=== PATIENT | male | born 1955 | race Caucasian/White ===

== ENCOUNTER → 2022-02-02 10:39 | Outpatient (CLI) | payer MEDICARE, OTHER, SELFPAY ==
--- NOTE | 2022-02-02 | DI.MRI.S_ITS ---
PROCEDURE: MR HIP LT WO CON INDICATIONS: Pain in left hip TECHNIQUE: Noncontrast coronal T1 spin echo and STIR through the bony pelvis. Coronal and axial T2 fast spin echo with fat saturation, sagittal T1 spin echo, and oblique axial T2 fast spin echo with fat saturation through the hip. COMPARISON: None. FINDINGS: Image quality: Motion degraded Bones: Pelvic ring: Intact Femoral head and neck: Serpiginous signal abnormalities with subchondral cystic changes and marrow edema, with edema also involving the acetabulum. 3 centimeter mildly T2 hyperintense lesion at the proximal femoral shaft. There is minimal femoral head collapse. Ligamentum teres: Intact. Lumbar spine and sacrum: Lower lumbar spondylosis Tendons: Abductors: [id number] tendinopathy at the insertion Adductors and rectus abdominis: Intact. No pubic symphyseal edema. IT band: Intact. Iliopsoas: Intact. No bursitis. Hamstrings: Intact. Rectus femoris: Intact. Sartorius: Not well seen Joint: Joint space: Mild effusion. Labrum: Difficult to evaluate. Likely chronically worn and degenerated. Cartilage: Moderate chondromalacia Soft tissues: Quadratus femoris: No edema or atrophy. Piriformis: Symmetric. Intrapelvic structures: Not well evaluated. No pathologic fluid, aneurysm, lymphadenopathy, or suspicious mass. No bowel obstruction. Bladder is unremarkable. IMPRESSION: Advanced degenerative changes of the left hip joint, also involving the partially seen right side. Serpiginous signal abnormalities and minimal femoral head collapse compatible with superimposed osteonecrosis. 3 centimeter indeterminate T2 hyperintense lesion in the left proximal femoral shaft. This could represent a benign entity, such as a cartilaginous lesion. If the patient has a primary history of malignancy, consider further workup with contrast enhanced imaging or bone scan. Any prior imaging would also be helpful to assess stability. Other findings as above. Abductor tendinopathy. Dictated by: Maurisio Parry M.D. on 02/02/2022 at 17:19 Approved by: Maurisio Parry M.D. on 02/02/2022 at 17:25
== END ==
PROVIDERS: PCP Student in an Organized Health Care Education/Training Program; Referring Provider Student in an Organized Health Care Education/Training Program; Visit Provider Student in an Organized Health Care Education/Training Program
DX: M25.552 Pain in left hip (principal); M89.9 Disorder of bone, unspecified
CPT/HCPCS: 73721

== ENCOUNTER → 2022-04-20 08:45 | Outpatient (CLI) | payer MEDICARE, OTHER, SELFPAY ==
--- NOTE | 2022-04-20 08:46 | DI.NM.S_ITS ---
PROCEDURE: NM BONE SCAN WHOLE BODY RADIOPHARMACEUTICAL: 20 mCi Tc-99m MDP IV. INDICATIONS: left feumor mass TECHNIQUE: Delayed whole-body scintigrams were obtained approximately 3-4 hours after intravenous injection of radiotracer. Anterior and posterior views were acquired from vertex to feet. Additional left and right oblique views of the rib cage and proximal femurs were obtained. COMPARISON: [facility], RG, CT LOWER EXTREMITY W/O CONTRAST, 02/21/2022, 10:53. [facility], MR, MR HIP LT WO CON, 02/02/2022, 11:29. FINDINGS: There is no abnormal uptake in left femur to correlate with intramedullary lesions seen on the comparison CT and MRI. Subtle increased uptake is seen superior to the right orbit, indeterminate. There is a focal uptake projecting to the anterior aspect of the right 7th rib, likely related to and old fracture or costochondral calcification. No lesions are identified in sternum, clavicles, scapulae, bony pelvis, and visualized shafts of the long bones. There are foci of increased uptake in cervical, thoracic and lumbar spine most likely secondary to degenerative disc and facet disease; early metastasis to spine could be obscured by degenerative changes. There are foci of increased periarticular activity involving shoulders, sternoclavicular joints, wrists, hands, hips, left ankle and both feet, compatible with degenerative/arthritic changes. More intense uptake in the left femoral head area correlates with CT/MRI findings of osteonecrosis. IMPRESSION: 1. There are no scintigraphic findings to correlate with bone lesions seen in the left femur on CT and MRI, suggesting the CT and MRI findings are secondary to a benign etiology. 2. Subtle increased uptake superior to the right orbit, indeterminate in nature. Recommend radiographic or CT correlation. 3. Subtle increased uptake in the right 7th rib, likely sequelae of old rib injury or related to costochondral calcification. 4. Degenerative changes are noted. Dictated by: Adrián Lawrence M.D. on 04/20/2022 at 15:54 Approved by: Adrián Lawrence M.D. on 04/21/2022 at 18:18
== END ==
PROVIDERS: PCP Student in an Organized Health Care Education/Training Program; Referring Provider Internal Medicine Medical Oncology; Visit Provider Internal Medicine Medical Oncology
DX: M89.8X5 Other specified disorders of bone, thigh (principal)
CPT/HCPCS: 78306; A9503

== ENCOUNTER → 2023-10-26 10:27 | Outpatient (CLI) | payer MEDICARE, OTHER, SELFPAY ==
--- NOTE | 2023-10-26 10:30 | DI.RAD.S_ITS ---
PROCEDURE: FL JOINT INJECTION LARGE LT INDICATIONS: Idiopathic aseptic necrosis of left femur COMPARISON: None. TECHNIQUE: The indications, alternatives, benefits, risks, and complications of the procedure were explained to the patient. Written informed consent was obtained and placed in the chart. The patient was placed in an appropriate position on the fluoroscopy table, and a site was chosen for percutaneous access under fluoroscopic guidance. The site was prepped and draped in a sterile fashion. Local anesthetic was administered using a 1% lidocaine solution. A hypodermic or spinal needle was then used to access the symptomatic joint. Intra-articular location of the needle tip was confirmed by injecting a small amount of contrast, followed by steroid administration. The needle was then withdrawn, and a bandage applied to the puncture site. FINDINGS: Joint injected: Left hip Medications injected: 6 mL of 40 mg/mL Kenalog and 0.5% Ropivacaine mixture. Patient's pain before injection: 7-8 out of 10. Patient's pain after injection: 4-5 out of 10. Complications: None. IMPRESSION: Successful fluoroscopically guided administration of steroid and anaesthetic solution into the left hip joint. Dictated by: Jonah Le M.D. on 10/26/2023 at 14:22 Approved by: Jonah Le M.D. on 10/26/2023 at 14:23
[2023-10-26] MEDS: LIDOCAINE 1% 20 ML INJ (13:16)
[2023-10-26] MEDS: ROPIVACAINE 0.5% PF 5 MG/ML 20ML VIAL 20 ML INJ (13:17)
[2023-10-26] MEDS: TRIAMCINOLONE 40 MG/ML VIAL INTRA-ARTI ×2 (13:18)
== END ==
LOC: RAD 10:28
PROVIDERS: PCP Student in an Organized Health Care Education/Training Program; Referring Provider Physician Assistant Surgical; Visit Provider Physician Assistant Surgical
DX: M87.052 Idiopathic aseptic necrosis of left femur (principal)
CPT/HCPCS: 20610; 77002